=== PATIENT | male | born 1935 | race Caucasian/White ===

== ENCOUNTER → 2016-12-12 | Day surgery (SDC) | payer MEDICARE, OTHER ==
[~2016-12-12] VITALS: Ht 177.8 cm; Wt 78.7 kg
[~2016-12-12] MED LIST: ACETAMINOPHEN500 MG PO; DELTASONE5 MG PO; DENOSUMAB SUB-Q; GOSERELIN ACETATE; LASIX20 MG PO; OMNICEF 300MG300 MG PO; PROCHLORPERAZIN10 MG PO; VITAMIN D-40400 UNIT PO; VITAMIN D3400 UNIT PO; XGEVA120 MG/1.7 SUB-Q; XTANDI40 MG PO; ZOLADEX SUB-Q; [UNRECOGNIZED DRUG - OTHER] SUB-Q; [UNRECOGNIZED DRUG - OTHER] SUB-Q
--- NOTE | ~2016-12-12 | OR ---
PATIENT'S NAME: ANNE PEÑA [facility] AGE: 80 Y [address] ROOM: [place] [address] LOCATION: [facility] [place] ADMIT DATE: 12/12/2016 OR/Procedure Report DISCHARGE DATE: FAMILY PHYSICIAN: JERRY ALSTON PA-C ATTENDING PHYSICIAN: Maycol Good SURGEON: Maycol Good MD HOME HEALTH BILLING SPECIALIST: DATE OF PROCEDURE: 12/12/2016 PREOPERATIVE DIAGNOSES: 1. Cancer of the prostate. 2. Bilateral ureteral obstruction. POSTOPERATIVE DIAGNOSES: 1. Bilateral ureteral obstruction. 2. Severe hydronephrosis, left kidney. PROCEDURE: 1. Cystoscopy and removal of stent. 2. Cystoscopy and retrograde pyelograms. 3. Cystoscopy and insertion of ureteral stent. DESCRIPTION OF PROCEDURE: After adequate anesthesia, he was prepped and draped. Cystoscope was passed. Anterior urethra was normal. Prostatic fossa was open but very fixed and rigid. The bladder was unremarkable. With endoscopic forceps, the right stent was removed and then the right stent was replaced with a 6-[place]awk 26 cm Percuflex stent. On the left side, the stent was removed and then retrograde pyelograms were done. Then, a guidewire was passed, and a stent was again inserted. Both stents coiled nicely in the kidney and in the bladder. He was then accompanied to recovery area. 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 After the injection of contrast media, there was marked obstruction in the midurethral area with marked ureteral pyelocaliectasis. IMPRESSION: 1. Bilateral ureteral obstruction. 2. Bilateral hydronephrosis, left hydronephrosis severe. We discussed his case with his oncologist at the [facility]. His creatinine now is 2. The question is whether or not to insert bilateral nephrostomy tubes. PATIENT'S NAME: ANNE PEÑA [facility] AGE: 80 Y [address] ROOM: [place] [address] LOCATION: [facility] [place] ADMIT DATE: 12/12/2016 OR/Procedure Report DISCHARGE DATE: FAMILY PHYSICIAN: JERRY ALSTON PA-C ATTENDING PHYSICIAN: Maycol Good MAYCOL K MD CINDY GOOD/modl /[id number] d: 12/12/16 0816 t: 12/13/16 0500, OPERATIVE SUMMARY
--- NOTE | ~2016-12-12 | HP ---
PATIENT'S NAME: ANNE PEÑA [facility] AGE: 80 Y [address] ROOM: [place] [address] LOCATION: [facility] ADMIT DATE: 12/12/2016 History & Physical DISCHARGE DATE: FAMILY PHYSICIAN: JERRY ALSTON PA-C ATTENDING PHYSICIAN: Maycol Good DATE OF SERVICE: 12/12/2016 HISTORY OF PRESENT ILLNESS: An 80-year-old male who was found to have adenocarcinoma of the prostate in 2006. At that time, his PSA was elevated at 10.8, and he was also found to have abnormal lymph nodes on the CT scan, which were biopsied and showed metastatic prostatic adenocarcinoma. He was then followed and treated by Dr. Dav Christiansen in [place]. Initially, he was placed on Zoladex every 3 months, and then in 2011, he was started on additional chemotherapy. In 2011, he had a TUR of the prostate for urinary retention and since then was followed at the [facility] with Zoladex every 3 months. He was then started on Xgeva every 2 months and Zytiga. His Zytiga was then changed to Xtandi. He was found to have bilateral ureteral obstruction with hydronephrosis and ureteral stents were inserted, and he is seen now for stent change. He has no other history of urinary tract disease or infection. He was born and raised in [place], [place]. 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 He was in [employer] from 1954 to 1957 and was stationed in [place]. PAST MEDICAL HISTORY: 1. Illnesses: Adenocarcinoma of the prostate. 2. Operations: As above. ALLERGIES: NONE KNOWN. PHYSICAL EXAMINATION: GENERAL: A well-developed, well-nourished male. CHEST: Clear. HEART: Normal sinus rhythm. PATIENT'S NAME: ANNE PEÑA [facility] AGE: 80 Y [address] ROOM: [place] [address] LOCATION: [facility] ADMIT DATE: 12/12/2016 History & Physical DISCHARGE DATE: FAMILY PHYSICIAN: JERRY ALSTON PA-C ATTENDING PHYSICIAN: Maycol Good ABDOMEN: Soft with no palpable masses or tenderness. : Normal penis. Testicles are small bilaterally. Prostate is enlarged and firm. RECTAL: Negative. IMPRESSION: 1. Adenocarcinoma of the prostate. 2. Bilateral hydroureteronephrosis. 3. Bilateral stents. PLAN: As above. MAYCOL MD CINDY LOVELACE/carolyne /[id number] D: [id number] T: [id number] HISTORY & PHYSICAL
[2016-12-12 06:35] LABS: BASOPHIL # 0.1 K/uL (0.0-0.2); BASOPHIL % 0.6 %; EOSINOPHIL # 0.2 K/uL (0.0-0.5); EOSINOPHIL % 2.5 %; HEMATOCRIT 37.4 % (33.0-50.0); HEMOGLOBIN 12.1 g/dL (11.0-16.0); IMMATURE GRANULOCYTE % 0.3 %; LYMPHOCYTE # 3.4 K/uL (0.8-4.0); MCH 31.3 pg (27.0-34.0); MCHC 32.4 gm/dL (32.0-36.5); MCV 96.6 fl (83.0-98.0); MONOCYTE # 0.5 K/uL (0.0-1.0); MONOCYTE % 5.8 %; MPV 8.8 fl (9.4-12.4); NEUTROPHIL # (ANC) 3.8 K/uL (1.4-9.0); NEUTROPHIL % 47.8 %; NRBC % 0 /100WBC (0-0.00); PLATELET COUNT 182 K/uL (150-450); RBC 3.87 M/uL (3.50-5.50); RDW-CV 13.9 % (11.9-14.6); WBC 7.9 K/uL (4.0-11.0)
[2016-12-12 06:48] LABS: ANION GAP 10.7 (10.0-19.0); CALCIUM 9.2 mg/dL (8.5-10.5); CREATININE 2.1 mg/dL (0.6-1.3); POTASSIUM 3.7 mMol/L (3.7-5.1); TOTAL BILIRUBIN 1.1 mg/dL (0.0-1.5); TOTAL PROTEIN 7.3 g/dL (6.0-8.4)
== END ==
LOC: GPOC 12-07 13:00 → GSDC 05:48 → GPOC 06:00
PROVIDERS: Urology
PROC: BT1FYZZ Fluoroscopy of Left Kidney, Ureter and Bladder using Other Contrast (ICD-10-PCS; principal; 2016-12-12)
PROC: 0T788DZ Dilation of Bilateral Ureters with Intraluminal Device, Via Natural or Artificial Opening Endoscopic (ICD-10-PCS; 2016-12-12)
DX: Z43.6 Encounter for attention to other artificial openings of urinary tract (principal); N13.1 Hydronephrosis with ureteral stricture, not elsewhere classified; C61 Malignant neoplasm of prostate; Z79.899 Other long term (current) drug therapy; Z79.52 Long term (current) use of systemic steroids
CPT/HCPCS: C1769; J0713; J2001; J7040; J7120